=== PATIENT | female | born 1995 | race Native Hawaiian/Other Pacific Islander ===

== ENCOUNTER 2016-11-08 10:34 | Outpatient (CLI) | payer OTHER ==
[~2016-11-08] VITALS: Ht 157.5 cm; Wt 75.0 kg
[2016-11-08] MEDS ORDERED: PRENTAB9 PO (10:42)
[2016-11-08] MEDS ORDERED: ASPI1TAB PO (10:42)
[2016-11-08 10:50] VITALS: BP 156/109
[2016-11-08 11:05] VITALS: BP 143/92
[2016-11-08 11:20] VITALS: BP 138/90
[2016-11-08 11:35] VITALS: BP 133/88
[2016-11-08 11:50] VITALS: BP 142/91
[2016-11-08 12:11] LABS: ALT/SGPT 19 U/L (12-78); AST/SGOT 21 U/L (15-37); BILIRUBIN,TOTAL 0.2 MG/DL (0.2-1.0); CREATININE FOR GFR 0.44 MG/DL (0.55-1.02); GLOMERULAR FILTRATION RATE > 60.0 (>60); URIC ACID 5.2 MG/DL (2.6-6.0)
[2016-11-08 12:17] LABS: MEAN CORPUSCULAR HEMOGLOBIN 30.2 pg (27.0-33.0); MEAN CORPUSCULAR HGB CONC 34.5 g/dl (32.0-36.5); MEAN CORPUSCULAR VOLUME 87.4 fl (80.0-96.0); RED CELL DISTRIBUTION WIDTH 13.2 % (11.5-14.5); WHITE BLOOD COUNT 7.5 K/mm3 (4.0-10.0)
== END 2016-11-08 13:37 | disposition home or self-care (01) ==
LOC: M LDO 10:34
PROVIDERS: ATTEND Advanced Practice Midwife
DX: O10.913 Unspecified pre-existing hypertension complicating pregnancy, third trimester (principal); O13.3 Gestational [pregnancy-induced] hypertension without significant proteinuria, third trimester; O24.410 Gestational diabetes mellitus in pregnancy, diet controlled; Z3A.31 31 weeks gestation of pregnancy; O09.33 Supervision of pregnancy with insufficient antenatal care, third trimester; Z79.82 Long term (current) use of aspirin

== ENCOUNTER → 2016-11-19 | Outpatient (CLI) | payer OTHER ==
[~2016-11-19] MED LIST: ASPI1TAB PO; PRENTAB9 PO
[2016-11-19 12:48] LABS: MEAN CORPUSCULAR HEMOGLOBIN 30.4 pg (27.0-33.0); MEAN CORPUSCULAR HGB CONC 34.4 g/dl (32.0-36.5); MEAN CORPUSCULAR VOLUME 88.4 fl (80.0-96.0); RED CELL DISTRIBUTION WIDTH 13.6 % (11.5-14.5); WHITE BLOOD COUNT 7.6 K/mm3 (4.0-10.0)
[2016-11-19 13:05] LABS: ALT/SGPT 19 U/L (12-78); AST/SGOT 22 U/L (15-37); BILIRUBIN,TOTAL 0.4 MG/DL (0.2-1.0); CREATININE FOR GFR 0.54 MG/DL (0.55-1.02); GLOMERULAR FILTRATION RATE > 60.0 (>60); URIC ACID 6.1 MG/DL (2.6-6.0)
== END ==
LOC: M LAB 12:06
PROVIDERS: ATTEND Obstetrics & Gynecology
DX: O13.9 Gestational [pregnancy-induced] hypertension without significant proteinuria, unspecified trimester (principal)

== ENCOUNTER 2016-12-23 15:16 | Inpatient (IN) | payer OTHER ==
[2016-12-23] VITALS (39 sets, daily range): BP systolic 130–183; BP diastolic 80–122
[~2016-12-23] VITALS: Ht 157.5 cm; Wt 75.0 kg
[2016-12-23 16:18] LABS: MEAN CORPUSCULAR HEMOGLOBIN 31.5 pg (27.0-33.0); MEAN CORPUSCULAR HGB CONC 35.6 g/dl (32.0-36.5); MEAN CORPUSCULAR VOLUME 88.5 fl (80.0-96.0); RED CELL DISTRIBUTION WIDTH 13.8 % (11.5-14.5); WHITE BLOOD COUNT 7.2 K/mm3 (4.0-10.0)
[2016-12-23] MEDS ORDERED: LABE20TAB PO (16:22)
[2016-12-23] MEDS ORDERED: LABETALOL 200 MG TAB PO ONE (16:30)
[2016-12-23 16:55] LABS: ALBUMIN 2.9 GM/DL (3.2-5.2); ALBUMIN/GLOBULIN RATIO 0.88 (1.00-1.93); ALKALINE PHOSPHATASE 193 U/L (45-117); ALT/SGPT 24 U/L (12-78); ANION GAP 8 MEQ/L (8-16); AST/SGOT 28 U/L (15-37); BILIRUBIN,TOTAL 0.3 MG/DL (0.2-1.0); BLOOD UREA NITROGEN 18 MG/DL (7-18); CALCIUM LEVEL 8.3 MG/DL (8.5-10.1); CARBON DIOXIDE LEVEL 22 MEQ/L (21-32); CHLORIDE LEVEL 109 MEQ/L (98-107); CREATININE FOR GFR 0.79 MG/DL (0.55-1.02); GLOMERULAR FILTRATION RATE > 60.0 (>60); GLUCOSE, FASTING 93 MG/DL (70-105); POTASSIUM SERUM 3.8 MEQ/L (3.5-5.1); SODIUM LEVEL 139 MEQ/L (136-145); TOTAL PROTEIN 6.2 GM/DL (6.4-8.2)
[2016-12-23] MEDS ORDERED: LACTATED RINGER'S 1000 ML IV STA (18:19)
[2016-12-23] MEDS ORDERED: LR 1,000 ML IV SCH ×2 (18:19)
[2016-12-23] MEDS ORDERED: OXYTOCIN DRIP 30 UNITS in APPROPRIATE DILUENT 1 EA IV SCH (18:30)
[2016-12-23] MEDS ORDERED: hydrALAZINE INJ 20 MG/ML VIAL IV ONE (20:00)
[2016-12-23] MEDS ORDERED: CALCIUM GLUCONATE 1,000 MG in D5W MINI-BAG PLUS 100 ML IV PRN (20:45)
[2016-12-23] MEDS ORDERED: MAG Sulf (L&D) 4 GM/100 ML 4 GM in APPROPRIATE DILUENT 1 EA IV ONE (20:45)
[2016-12-23] MEDS: MAG Sulf (OBGYN) 20GM/500ML 20,000 MG in APPROPRIATE DILUENT 1 EA IV SCH (21:38)
[2016-12-24] VITALS (96 sets, daily range): BP systolic 114–170; BP diastolic 68–112
[2016-12-24 03:00] LABS: MEAN CORPUSCULAR HEMOGLOBIN 31.2 pg (27.0-33.0); MEAN CORPUSCULAR HGB CONC 35.2 g/dl (32.0-36.5); MEAN CORPUSCULAR VOLUME 88.8 fl (80.0-96.0); RED CELL DISTRIBUTION WIDTH 13.6 % (11.5-14.5); WHITE BLOOD COUNT 10.6 K/mm3 (4.0-10.0)
[2016-12-24 03:18] LABS: ALBUMIN 2.8 GM/DL (3.2-5.2); ALBUMIN/GLOBULIN RATIO 0.74 (1.00-1.93); ALKALINE PHOSPHATASE 192 U/L (45-117); ALT/SGPT 25 U/L (12-78); ANION GAP 10 MEQ/L (8-16); AST/SGOT 27 U/L (15-37); BILIRUBIN,TOTAL 0.3 MG/DL (0.2-1.0); BLOOD UREA NITROGEN 13 MG/DL (7-18); CALCIUM LEVEL 8.5 MG/DL (8.5-10.1); CARBON DIOXIDE LEVEL 22 MEQ/L (21-32); CHLORIDE LEVEL 109 MEQ/L (98-107); CREATININE FOR GFR 0.69 MG/DL (0.55-1.02); GLOMERULAR FILTRATION RATE > 60.0 (>60); GLUCOSE, FASTING 75 MG/DL (70-105); POTASSIUM SERUM 3.8 MEQ/L (3.5-5.1); SODIUM LEVEL 141 MEQ/L (136-145); TOTAL PROTEIN 6.6 GM/DL (6.4-8.2)
[2016-12-24 03:22] LABS: MAGNESIUM LEVEL 5.6 MG/DL (1.8-2.4)
[2016-12-24] MEDS: MAG Sulf (OBGYN) 20GM/500ML 20,000 MG in APPROPRIATE DILUENT 1 EA IV SCH ×3 (07:50→22:22)
[2016-12-24] MEDS ORDERED: LABETALOL 200 MG TAB PO SCH (09:00)
[2016-12-24 09:44] LABS: MEAN CORPUSCULAR HEMOGLOBIN 31.6 pg (27.0-33.0); MEAN CORPUSCULAR VOLUME 87.7 fl (80.0-96.0); RED CELL DISTRIBUTION WIDTH 13.7 % (11.5-14.5); WHITE BLOOD COUNT 9.4 K/mm3 (4.0-10.0)
[2016-12-24 09:54] LABS: ALBUMIN 2.8 GM/DL (3.2-5.2); ALKALINE PHOSPHATASE 212 U/L (45-117); ALT/SGPT 27 U/L (12-78); ANION GAP 11 MEQ/L (8-16); AST/SGOT 28 U/L (15-37); BILIRUBIN,TOTAL 0.4 MG/DL (0.2-1.0); BLOOD UREA NITROGEN 11 MG/DL (7-18); CALCIUM LEVEL 7.6 MG/DL (8.5-10.1); CARBON DIOXIDE LEVEL 21 MEQ/L (21-32); CHLORIDE LEVEL 106 MEQ/L (98-107); CREATININE FOR GFR 0.73 MG/DL (0.55-1.02); GLOMERULAR FILTRATION RATE > 60.0 (>60); GLUCOSE, FASTING 78 MG/DL (70-105); POTASSIUM SERUM 3.8 MEQ/L (3.5-5.1); SODIUM LEVEL 138 MEQ/L (136-145); TOTAL PROTEIN 6.3 GM/DL (6.4-8.2)
[2016-12-24] MEDS ORDERED: FENTANYL 2MCG/ML ROPIVACAINE 0.2% IN 0.9% NACL 200ML IVBAG As Ordered ONE (15:01)
[2016-12-24] MEDS ORDERED: EPIDURAL COMMENT XX SCH (16:30)
[2016-12-24] MEDS ORDERED: ONDANSETRON 4MG/2ML VIAL (J2405) IV PRN ×2 (16:30→18:45)
[2016-12-24] MEDS ORDERED: diphenhydrAMINE INJ 50MG/ML VIAL (J1200) IV PRN (16:30)
[2016-12-24] MEDS ORDERED: FENTANYL/ROPIVACAINE/NACL BAG 200 ML EPIDURAL SCH (16:30)
[2016-12-24] MEDS ORDERED: REFRIGERATOR IV KEYS XX PRN (16:30)
[2016-12-24] MEDS ORDERED: LACTATED RINGER'S 1000 ML IV PRN (16:30)
[2016-12-24] MEDS ORDERED: EPIDURAL/PCA KEYS XX PRN (16:30)
[2016-12-24] MEDS ORDERED: NALOXONE INJ 0.4 MG/1 ML VIAL (J2310) IV PRN (16:30)
[2016-12-24] MEDS ORDERED: ePHEDrine SULFATE 25 MG/5 ML(5MG/ML) SYRINGE IV PRN (16:30)
[2016-12-24] MEDS ORDERED: OXYTOCIN 30 UNITS IN 0.9% NaCl 500ML IV BAG (J2590) As Ordered ONE (18:05)
[2016-12-24] MEDS ORDERED: OXYTOCIN DRIP 30 UNITS in APPROPRIATE DILUENT 1 EA IV SCH (18:38)
[2016-12-24] MEDS ORDERED: MEASLES,MUMPS,RUBELLA VACCINE INJ (MMR-II) (90707) SC SCH (18:45)
[2016-12-24] MEDS ORDERED: RHOGAM 300 MCG (1500 IU) INJ (J2790) IM SCH (18:45)
[2016-12-24] MEDS ORDERED: DIBUCAINE 1% OINTMENT 30GM TOP PRN (18:45)
[2016-12-24] MEDS ORDERED: ACETAMINOPHEN 500 MG TAB PO PRN (18:45)
[2016-12-24] MEDS ORDERED: PROMETHAZINE 25 MG TAB PO PRN (18:45)
[2016-12-24] MEDS ORDERED: IBUPROFEN 800 MG TAB PO PRN (18:45)
[2016-12-24] MEDS: DOCUSATE SODIUM 100 MG CAP PO SCH (21:00)
[2016-12-24] MEDS: LR 1,000 ML IV SCH (22:22)
[2016-12-25] VITALS (21 sets, daily range): BP systolic 111–149; BP diastolic 57–96
[2016-12-25] MEDS ORDERED: miSOPROStol 200 MCG TAB (S0191) As Ordered ONE (02:22)
[2016-12-25] MEDS ORDERED: miSOPROStol 200 MCG TAB (S0191) PR ONE (02:30)
[2016-12-25] MEDS: LR 1,000 ML IV SCH ×2 (03:35→14:22)
[2016-12-25] MEDS: MAG Sulf (OBGYN) 20GM/500ML 20,000 MG in APPROPRIATE DILUENT 1 EA IV SCH ×2 (08:22→12:39)
[2016-12-25] MEDS: PRENATAL VITAMIN TAB PO SCH (08:29)
[2016-12-25] MEDS: LABETALOL 200 MG TAB PO SCH ×2 (08:30→21:20)
[2016-12-25] MEDS: DOCUSATE SODIUM 100 MG CAP PO SCH ×2 (08:30→21:19)
--- NOTE | 2016-12-25 10:20 | IPNPDOC ---
Text Note Date of Service The patient was seen on 12/25/16. NOTE [id number] @ [address] Ann [id number] @ 1000 S: pt resting in bed with babe under bili lights next to her bed, reports she feel weak and hot. Denies SOB, BACA, visual changes, n/v and RUQ pain. Reports is going well O: VS- occasional mild range BP, afebrile Fundus @ U-1, moderate bleeding BS- CTA HR- RRR DTRs- +[address] Magnesium @ 2 gms/hr, LR @ 75 ml/hr Urine output 225 ml last hour A: 21 yo s/p [id number] @ 1825 with pre-e with severe features with 1MLL in stable condition. P: RNs continue to monitor and assess Q 1hour. Contact provider with any severe range BPs 160/110 or any changes in status. VS,Fishbone, I+O VS, Fishbone, I+O Vital Signs Date Time Temp Pulse Resp B/P (MAP) Pulse Ox O2 Delivery O2 Flow Rate FiO2 12/25/16 09:30 98.4 91 18 131/81 (98) 97 12/25/16 06:30 Room Air I&O- Last 24 Hours up to 6 AM 12/25/16 06:00 Intake Total 3582.1 ml Output Total 4265 ml Balance -682.9 ml JUANA KOLB CNM Dec 25, 2016 10:20
--- NOTE | 2016-12-25 17:20 | IPN ---
DATE: 12/24/2016 This patient has requested circumcision of their male infant. After discussing the risks and benefits of circumcision, the medical and nonmedical indications, the penile block, and aftercare, both expressed understanding of penile block and aftercare, signed and witnessed the consent form. All questions were answered. We await the clearance by the forensic structural engineer.
[2016-12-26 02:00] VITALS: BP 137/78
[2016-12-26 06:00] VITALS: BP 138/92
--- NOTE | 2016-12-26 07:17 | IPNPDOC ---
Text Note Date of Service The patient was seen on 12/26/16. NOTE PPD2 prog note, off Mag Sulfate since yesterday evening. Labetalol 200 mg BID. States feeling well, no complaints. No heavy VB. Pain controlled. Voiding, ambulatory. Bonding well and breast feeding well. Denies BACA or vis changes or CP/SOB/LP. VS reviewed, AF CTAB RRR Ut at U-2, firm Ext no CCE a/p: Doing well. Likely d/c tomorrow. Baby under bili lights. Sessions MD CARLIN,Davy, I+O VSDavy I+O Vital Signs Date Time Temp Pulse Resp B/P (MAP) Pulse Ox O2 Delivery O2 Flow Rate FiO2 12/26/16 06:00 97.7 81 20 138/92 (107) 100 Room Air I&O- Last 24 Hours up to 6 AM 12/26/16 06:00 Intake Total 3940 ml Output Total 7505 ml Balance -3565 ml SESSIONS,ORVILLE Crowley MD Dec 26, 2016 07:16
[2016-12-26] MEDS: LABETALOL 200 MG TAB PO SCH ×2 (08:46→21:32)
[2016-12-26] MEDS: PRENATAL VITAMIN TAB PO SCH (08:46)
[2016-12-26] MEDS: DOCUSATE SODIUM 100 MG CAP PO SCH ×2 (08:46→21:32)
[2016-12-26 10:39] VITALS: BP 121/71
[2016-12-26 14:15] VITALS: BP 138/85
[2016-12-26 18:24] VITALS: BP 143/93
[2016-12-26 21:30] VITALS: BP 155/94
[2016-12-27 02:08] VITALS: BP 139/70
[2016-12-27 05:46] VITALS: BP 139/77
[2016-12-27] MEDS: PRENATAL VITAMIN TAB PO SCH (08:59)
[2016-12-27] MEDS: DOCUSATE SODIUM 100 MG CAP PO SCH (08:59)
[2016-12-27 09:01] VITALS: BP 137/87
[2016-12-27] MEDS: LABETALOL 200 MG TAB PO SCH (09:01)
[2016-12-27] MEDS ORDERED: MOTR200T44 PO (14:08)
[2016-12-27] MEDS ORDERED: TYLE325T5 PO (14:08)
[2016-12-27] MEDS ORDERED: NUPE1OIN2 TOP (14:08)
[2016-12-27] MEDS ORDERED: COLA100C3 PO (14:08)
--- NOTE | 2016-12-27 22:46 | DSES ---
DATE OF ADMISSION: 12/23/2016 DATE OF DISCHARGE: 12/27/2016 This is a 21-year-old 2, now para 1 who was admitted in active labor with a history of chronic hypertension, obesity, GDMA1 and pre-eclamptic overlay. She had a spontaneous vaginal delivery with epidural in place of a live male , 4 pounds 4 ounces, 2220 grams, of 8 and 9 at one and five minutes respectively. Her admitting hemoglobin was 14.0, hematocrit 39.3, platelets were 183. Discharge hemoglobin is 15.1, hematocrit 41.8 and platelets are 192. She was on magnesium sulfate for 24 hours and removed. Her blood pressure is stabilized out on her labetalol. Her pre issues are presently resolved, but her CHPN is continuing. On day #3, we discussed phlebitis, cystitis, mastitis, endometritis, and cellulitis, exercise, pain management, perineal, breast and wound care. Her blood pressure today on discharge is 137/87, respirations 18, pulse 81, temperature is 98.1. She is normocephalic, atraumatic. Neck: Full range of motion. Pupils equal and reactive to light. Reflexes are normal upper and lower. No pedal edema. No visual disturbances. No right upper quadrant pain. Distal pulses are symmetric. No evidence of deep venous thrombosis (DVT), pulmonary embolism (PE) or superficial phlebitis. Lungs are clear bilaterally to bases. No wheezes or rhonchi. No CVA tenderness. Abdomen: Soft. Uterus 2 below, four quadrant bowel sounds are noted. She has no rashes, lesions or pruritus. No arthralgia or myalgia. No complaints of cough, wheezes, shortness of breath or dyspnea on exertion. No allergies. No chest pain. No bleeding. Neuro complete. No urgency, frequency. No nausea, vomiting, diarrhea or constipation. No diabetic issues. GYNECOLOGY HISTORY: Unremarkable; PAST MEDICAL HISTORY: Unremarkable. FAMILY HISTORY: Noncontributory. SOCIAL HISTORY: She does not smoke, drink or abuse drugs. She is . There is no domestic violence. She is presently breast-feeding and doing well; anxious to be home and she was given medications for discharge and to followup in 1 week for blood pressure check and 6 weeks for check. In summary we have a term gestation with chronic hypertension pre-eclampsia, obesity, GDMA1, delivered a live male , off magnesium sulfate. Discharged improved.
[2016-12-28] MEDS ORDERED: PRENATAL VITAMINS CHEWABLE TABLET PO SCH (09:00)
== END 2016-12-27 15:00 | disposition home or self-care (01) | DRG 774 ==
LOC: M LDO 15:16 → M LDI 18:04 → M OBS 12-24 21:31
PROVIDERS: ADMIT Student in an Organized Health Care Education/Training Program; ATTEND Obstetrics & Gynecology
PROC: 10E0XZZ Delivery of Products of Conception, External Approach (ICD-10-PCS; principal; 2016-12-24)
PROC: 0HQ9XZZ Repair Perineum Skin, External Approach (ICD-10-PCS; 2016-12-24)
DX: O11.4 Pre-existing hypertension with pre-eclampsia, complicating childbirth (principal); O10.02 Pre-existing essential hypertension complicating childbirth; O24.420 Gestational diabetes mellitus in childbirth, diet controlled; Z3A.38 38 weeks gestation of pregnancy; E66.9 Obesity, unspecified; O99.214 Obesity complicating childbirth; O70.0 First degree perineal laceration during delivery; Z37.0 Single live birth; Z68.30 Body mass index [BMI] 30.0-30.9, adult

== ENCOUNTER 2017-10-23 18:11 | Emergency (ER) | payer OTHER ==
[2017-10-23] MEDS: IBUPROFEN 600 MG TAB PO (19:11)
[2017-10-23 19:38] LABS: APPEARANCE, URINE HAZY (CLEAR); BACTERIA, URINE AUTO NEGATIVE (NEGATIVE); BILIRUBIN, URINE AUTO NEGATIVE (NEGATIVE); BLOOD, URINE BLOOD 2+ (NEGATIVE); COLOR, URINE YELLOW (YELLOW); GLUCOSE, URINE (UA) AUTO NEGATIVE (NEGATIVE); KETONE, URINE AUTO 2+ mg/dL (NEGATIVE); LEUKOCYTE ESTERASE, URINE AUTO TRACE (NEGATIVE); MUCUS, URINE SMALL (NEGATIVE); NITRITE, URINE AUTO NEGATIVE (NEGATIVE); PROTEIN, URINE AUTO 1+ mg/dL (NEGATIVE); RBC, URINE AUTO 30 /HPF (0-3); SPECIFIC GRAVITY URINE AUTO 1.041 (1.002-1.035); SQUAMOUS EPITHELIAL CELL UR AU 5 /HPF (0-6); UROBILINOGEN, URINE AUTO 0.2 mg/dL (0.0-2.0); WBC, URINE AUTO 1 /HPF (0-3)
[2017-10-23 20:08] LABS: INFLUENZA A AMPLIFICATION NEGATIVE (NEGATIVE); INFLUENZA B AMPLIFICATION NEGATIVE (NEGATIVE); RSV AMPLIFICATION NEGATIVE (NEGATIVE)
[2017-10-23] MEDS: AMOXICILLIN 500 MG CAP PO (20:45)
== END 2017-10-23 20:49 | disposition home or self-care (01) ==
LOC: M ED 18:11
DX: J02.0 Streptococcal pharyngitis (principal); R50.9 Fever, unspecified; Z79.899 Other long term (current) drug therapy
CPT/HCPCS: 81001